=== PATIENT | female | born 1960 ===

== ENCOUNTER 2023-12-30 13:15 | Emergency (ER) | payer MEDICARE, MEDICAID ==
[2023-12-30] MEDS: Ketorolac 30 MG/ML SDV IM ONE (13:58)
== END 2023-12-30 15:54 | disposition home or self-care (01) ==
LOC: LL.ED 13:15
DX: M54.18 Radiculopathy, sacral and sacrococcygeal region (principal); H61.891 Other specified disorders of right external ear; Z88.5 Allergy status to narcotic agent
CPT/HCPCS: 72202; 96372; 99283; 99284; J1885

== ENCOUNTER 2024-03-24 10:05 | Emergency (ER) | payer MEDICARE, MEDICAID | END 2024-03-24 11:00 | disposition home or self-care (01) | LOC: LL.ED 10:05 | DX: M46.1 Sacroiliitis, not elsewhere classified (principal); Z79.84 Long term (current) use of oral hypoglycemic drugs; Z79.899 Other long term (current) drug therapy; Z88.5 Allergy status to narcotic agent; Z88.8 Allergy status to other drugs, medicaments and biological substances | CPT/HCPCS: 99283 ==

== ENCOUNTER 2024-07-26 14:21 | Emergency (ER) | payer MEDICARE, MEDICAID ==
[2024-07-26] MEDS: oxyCODONE 5 MG Tab PO ONE (15:27)
== END 2024-07-26 15:45 | disposition home or self-care (01) ==
LOC: LL.ED 14:21
DX: M25.561 Pain in right knee (principal); I10 Essential (primary) hypertension; J44.9 Chronic obstructive pulmonary disease, unspecified; E78.00 Pure hypercholesterolemia, unspecified; Z88.5 Allergy status to narcotic agent; Z79.899 Other long term (current) drug therapy
CPT/HCPCS: 99283; A9270-GY

== ENCOUNTER 2024-10-18 21:06 | Emergency (ER) | payer MEDICARE, MEDICAID ==
[2024-10-18] MEDS: Acetaminophen 325 MG Tab PO ONE (21:20)
[2024-10-18] MEDS: oxyCODONE 5 MG Tab PO ONE (21:20)
[2024-10-18] MEDS: predniSONE 20 MG Tab PO ONE (21:21)
== END 2024-10-18 21:30 | disposition home or self-care (01) ==
LOC: LL.ED 21:06
DX: M17.11 Unilateral primary osteoarthritis, right knee (principal); I10 Essential (primary) hypertension; E78.00 Pure hypercholesterolemia, unspecified; J44.9 Chronic obstructive pulmonary disease, unspecified; F17.210 Nicotine dependence, cigarettes, uncomplicated; Z88.5 Allergy status to narcotic agent; Z79.899 Other long term (current) drug therapy
CPT/HCPCS: 99283; A9270-GY; J7512